=== PATIENT | female | born 1960 | race Caucasian/White ===

== ENCOUNTER → 2020-06-23 | Outpatient (CLI) | payer MEDICARE ==
[2016-03-09 15:00] VITALS: BP 104/73
[~2020-06-23] MED LIST: CELE200C PO; CLIN300C9 PO; CYCL10TA2 PO; DULO60CA6 PO; GABA300C18 PO; HYDR-2761 PO; HYDR-2765 PO; LOSA1TAB22 PO; MELO15TA23 PO; OMEP20TA8 PO; TIZA4TAB8 PO; WARF5TAB2 PO
--- NOTE | 2020-06-23 14:26 | RAD ---
NM INJECTION, NM THREE PHASE BONE SCAN, NM SCANNING RESOURCE Clinical Indication: Right lateral and patellar knee pain x9 months. Bilateral knee replacements. Rig ht knee replacement February 2014, right knee revision February 2016. Comparison: Right knee radiographs 03/06/2016 at 03/14/2014. Three-phase bone scan on 01/18/2016. TECHNIQUE: Patient is injected with 24.5 mCi of technetium 99m MDP. Anterior and posterior angiograph ic phase images of the knees acquired. Anterior and posterior immediate static images are obtained. A fter routine delay, multiple projection static images of the knees acquired. Findings: Angiographic phase images of the knees are negative. Blood flow is symmetric. The immediate static (blood pool) images do not demonstrate asymmetric tracer uptake. On delay images bilateral knee arthroplasties are noted. There is mild tracer uptake along the left t ibial plateau. There is moderate tracer uptake of the right distal femur and proximal tibia adjacent to the prosthesis. No increased tracer uptake at the tip of the right tibial stem is seen. IMPRESSION: The angiographic and immediate static phase images are negative.On delay images there is greater than expected moderate right knee periprosthesis tracer uptake. Overall findings do not suggest loosening . Electronically signed by: Jordan Vital MD (06/23/2020 2:23 PM) [id number]
== END ==
LOC: NM 09:20
PROVIDERS: ATTEND Orthopaedic Surgery
DX: Z96.653 Presence of artificial knee joint, bilateral (principal)
CPT/HCPCS: 78315; A9503

== ENCOUNTER → 2021-03-27 | Outpatient (CLI) | payer MEDICARE ==
[2016-03-09 15:00] VITALS: BP 104/73
[~2021-03-27] MED LIST changes: +CLIN-94 PO; -CLIN300C9 PO; +CYCL10TA19 PO; -CYCL10TA2 PO; -DULO60CA6 PO; +DULO60CA7 PO; +LIDOCAINE 1% Multi-Dose 20 ML VIAL. INJ ONE
--- NOTE | 2021-03-27 14:07 | RAD ---
EXAM: Sonographic guided left breast biopsy; left breast biopsy clip placement; left breast postbiops y mammogram. HISTORY: 60-year-old female presents for sonographic guided biopsy of a left breast mass demonstrated on a sonogram performed 03/07/2021. TECHNIQUE: The risks of the procedure discussed with the patient and written and verbal consent was o btained. A timeout was performed. Sonographic imaging of the left breast was performed and the 1.6 cm mass of concern at the 2:00 position was identified. The skin in this location was sterilely prepped , draped and infiltrated with 1 percent lidocaine. Deeper anesthesia was provided with 1 percent lido devendra around the lesion of concern. Multiple [facility] obtained [facility] A biopsy clip was advanced into the lesion. Manual compression was main tained until hemostasis was achieved. A sterile bandage was placed. A post biopsy mammogram was obtai gabby. This was interpreted as a separate workstation and demonstrates the biopsy clip in expected posi tion. The patient tolerated the procedure without complication. IMPRESSION: Successful sonographic guided biopsy of a 1.6 cm mass at the 2:00 position of the left br east and biopsy clip placement. An addendum to this report will be submitted when pathology results a re available. Electronically signed by: Anjana Sears MD (03/27/2021 2:05 PM) [id number]
--- NOTE | 2021-03-27 14:07 | RAD ---
EXAM: Sonographic guided left breast biopsy; left breast biopsy clip placement; left breast postbiops y mammogram. HISTORY: 60-year-old female presents for sonographic guided biopsy of a left breast mass demonstrated on a sonogram performed 03/07/2021. TECHNIQUE: The risks of the procedure discussed with the patient and written and verbal consent was o btained. A timeout was performed. Sonographic imaging of the left breast was performed and the 1.6 cm mass of concern at the 2:00 position was identified. The skin in this location was sterilely prepped , draped and infiltrated with 1 percent lidocaine. Deeper anesthesia was provided with 1 percent lido devendra around the lesion of concern. Multiple core samples were obtained [facility] A biopsy clip was advanced into the lesion. Manual compression was main tained until hemostasis was achieved. A sterile bandage was placed. A post biopsy mammogram was obtai gabby. This was interpreted as a separate workstation and demonstrates the biopsy clip in expected posi tion. The patient tolerated the procedure without complication. IMPRESSION: Successful sonographic guided biopsy of a 1.6 cm mass at the 2:00 position of the left br east and biopsy clip placement. An addendum to this report will be submitted when pathology results a re available. Electronically signed by: Anjana Sears MD (03/27/2021 2:05 PM) [id number]
--- NOTE | 2021-03-28 16:10 | PATHOLOGY ---
[facility] Accession Number: [id number] . 01 Material submitted: . breast - LEFT BREAST MASS 2 O'CLOCK 7CM FN 1.6CM. Modifiers: left, 2:00, 7CM FN . 01 Clinical history: . ABNORMAL MAMMO LT BREAST BIOPSY OBTAINED 1310 FORMALIN 1311 . 02 Diagnosis: Breast tissue, left breast mass 2:00, 7 cm from nipple needle biopsies: - INVASIVE DUCTAL CARCINOMA, HIGH GRADE. SEE COMMENT. . (JPM:mml; 03/28/2021) [facility] 03/28/2021 1510 Local . 02 Comment: Sections of the left breast mass 2:00 needle biopsy reveal an invasive mammary carcinoma. Tumor cells are present in irregular solid nests and focal cords which infiltrate a reactive desmoplastic stroma. The tumor shows little tubule formation. Tumor cells possess enlarged, moderately pleomorphic hyperchromatic nuclei containing prominent nucleoli. Tumor cells focally contain intracytoplasmic lumina. The tumor is mitotically active, with foci showing up to 6 mitotic figures/HPF. There is no lymphovascular tumor invasion. There are a few tumor-associated calcifications. The invasive carcinoma measures up to 1.6 cm in greatest dimension on the glass slide. The findings are supportive of the diagnosis of invasive ductal carcinoma, grade 3. Breast prognostics will be obtained on A2, the results of which will be reported separately. . This case also examined by Dr. Tony Crawford, who concurs with the diagnosis. . (JPM:mml; 03/28/2021) . 02 Electronically signed: . Suhas Booker MD, Pathologist NPI- [id number] . 01 Gross description: . The specimen is received in formalin, labeled "[place], Ana, left breast 2:00, 7 cm FN". Received are 3 needle cores of fibrofatty tissue measuring 1.8 x 0.6 x 0.2 cm in aggregate dimensions. The specimen is submitted entirely in cassettes A1-A3. The specimen is collected at 1310 and placed into formalin at 1311 on 03/27/2021. The specimen is removed from formalin at 2240 on 03/27/2021. The total formalin fixation time is 9 hours and 29 minutes. ([facility]; 03/27/2021) NRI/NRI 03/28/2021 1318 Local . 02 Pathologist provided ICD-10: C50.912 . 02 CPT . 394846 Specimen Comment: A courtesy copy of this report has been sent to [phone], [phone] Specimen Comment: [phone] Specimen Comment: Report sent to / DR JIN Performed at: 01 [facility] [address], [place] [id number] MD Noah Capone MD Phone: [phone] Performed at: 02 [facility] [address], [place] [id number] MD Suhas Booker MD Phone: [phone]
== END | disposition home or self-care (01) ==
LOC: US 12:32
PROVIDERS: ATTEND Physician Assistant
DX: N63.21 Unspecified lump in the left breast, upper outer quadrant (principal); R92.8 Other abnormal and inconclusive findings on diagnostic imaging of breast; I10 Essential (primary) hypertension; J45.909 Unspecified asthma, uncomplicated; E66.9 Obesity, unspecified; K21.9 Gastro-esophageal reflux disease without esophagitis; M19.90 Unspecified osteoarthritis, unspecified site; F41.9 Anxiety disorder, unspecified; F32.9 Major depressive disorder, single episode, unspecified; Z79.899 Other long term (current) drug therapy; Z98.890 Other specified postprocedural states; Z98.51 Tubal ligation status
CPT/HCPCS: 19083; 77065; A4648; C1819